=== PATIENT | male | born 1990 | race African-American/Black ===

== ENCOUNTER 2022-02-03 06:06 | Emergency (ER) | payer OTHER, SELFPAY ==
[2022-02-03] VITALS (27 sets, daily range): BP systolic 114–144; BP diastolic 62–85; PULSE 65–104; RESP 14–31; TEMP 36.8; O2SAT 99–100
--- NOTE | 2022-02-03 06:12 | ECG_ITS ---
Measurements Intervals [place] Rate: 77 P: 64 AR: 196 QRS: 55 QRSD: 86 T: 42 QT: 343 QTc: 388 Interpretive Statements SINUS RHYTHM ST ELEVATION IN DIFFUSE LEADS- CONSIDER PERICARDITIS OR EARLY REPOLARIZATION ABNORMAL ECG NO PREVIOUS ECG AVAILABLE FOR COMPARISON Electronically Signed On 02-03-2022 7:03:48 MAINFRAME PROGRAMMER ANALYST by Kenny Tatum D.O.
--- NOTE | 2022-02-03 06:19 | ED.GENADULT ---
HPI - General Adult General Chief complaint: Seizure Stated complaint: possible seizure Time Seen by Provider: 02/03/22 06:22 History of Present Illness HPI narrative: Patient is a 31-year-old gentleman who presents to Emergency Department with a chief complaint of seizure. Patient reports that he has prior history of a seizure disorder and takes Keppra 1000 mg twice daily. Patient reports that he is currently treated travel back to [place] and reports that he forgot his Keppra. Patient was on a bus became unresponsive and they called EMS. The patient initially could not provide much history but upon arrival to the emergency department says that he is able to provide history at this point. Related Data Home Medications Medication Instructions Recorded Confirmed levetiracetam 1,000 mg tablet 1,000 mg PO 2XD 02/03/22 02/03/22 (Keppra) Allergies Allergy/AdvReac Type Severity Reaction Status Date / Time No Known Allergies Allergy Verified 02/03/22 06:19 Review of Systems Review of Systems: A 10 system review of systems was completed on the patient and is negative except for what is stated in the HPI. Nursing and ancillary documentation was reviewed. PMFSH Comments Prior history of seizures Exam Narrative: GENERAL: Well-appearing, well-nourished, and in no acute distress. HEAD: Normocephalic, atraumatic. EYES: PERRLA and EOMI. ENT: Nares clear, no rhinorrhea or epistaxis. Mucous membranes moist. NECK: Supple. CHEST: Clear to auscultation. No respiratory distress. HEART: Regular rate and rhythm. No murmur heard. Normal peripheral pulses. ABDOMEN: Soft, nontender, nondistended, normal active bowel sounds. EXTREMITIES: Normal range of motion. No edema. SKIN: Warm, dry, no rash. NEURO: No focal deficits. Alert and oriented x3. PSYCH: Normal mood and affect. Course Course Emergency Course: EKG is sinus rhythm rate of [address] elevation or ST depression Vital Signs Vital signs: Vital Signs Temperature 36.8 C 02/03/22 06:06 Pulse Rate 101 H 02/03/22 06:06 Respiratory Rate 16 02/03/22 06:06 Blood Pressure 132/81 02/03/22 06:06 Pulse Oximetry 99 02/03/22 06:06 Oxygen Delivery Room Air 02/03/22 06:06 Temperature 36.8 C 02/03/22 06:06 Pulse Rate 101 H 02/03/22 06:06 Respiratory Rate 16 02/03/22 06:06 Blood Pressure 132/81 02/03/22 06:06 Pulse Oximetry 99 02/03/22 06:06 Oxygen Delivery Room Air 02/03/22 06:36 Medical Decision Making Vital Signs Vital Signs: Vital Signs Temperature 36.8 C 02/03/22 06:06 Pulse Rate 101 H 02/03/22 06:06 Respiratory Rate 16 02/03/22 06:06 Blood Pressure 132/81 02/03/22 06:06 Pulse Oximetry 99 02/03/22 06:06 Oxygen Delivery Room Air 02/03/22 06:06 Temperature 36.8 C 02/03/22 06:06 Pulse Rate 101 H 02/03/22 06:06 Respiratory Rate 16 02/03/22 06:06 Blood Pressure 132/81 02/03/22 06:06 Pulse Oximetry 99 02/03/22 06:06 Oxygen Delivery Room Air 02/03/22 06:36 Lab Data Result diagrams: 02/03/22 06:28 02/03/22 06:28 Labs: Lab Results 02/03/22 02/03/22 02/03/22 Range/Units 06:25 06:28 06:28 WBC 9.5 (4.5-10.0) K/mm3 RBC 4.37 L (4.6-6.20) M/mm3 Hgb 13.1 L (14.0-18.0) g/dL Hct 39.0 L (42.0-52.0) % MCV 89.2 (80-100) fl MCH 30.0 (26-34) pg MCHC 33.6 (32-36) g/dl RDW 13.4 (11.5-14.5) % Plt Count 227 (150-375) k/mm3 MPV 10.1 (7.4-10.4) fl Immature Gran % (Auto) 0.2 (0-0.5) % Neut % (Auto) 64.2 (45.5-73.1) % Lymph % (Auto) 22.2 (18.3-44.2) % [place] % (Auto) 9.1 H (2.6-8.5) % Eos % (Auto) 4.1 (0-4.4) % Baso % (Auto) 0.2 (0.2-1.2) % Lymph # (Auto) 2.10 (0.9-3.2) K/mm3 [place] # (Auto) 0.9 H (0.1-0.6) K/mm3 Eos # (Auto) 0.4 H (0-0.3) K/mm3 Baso # (Auto) 0.0 (0.0-0.1) K/mm3 Abs Immat Gran (auto) 0.02 (0.00-0.031) K/mm3 Absolute Neuts (auto) 6.1 (1.
[2022-02-03] MEDS: levETIRAcetam 1000MG/NACL100ML 1,000 MG/100 ML BAG 400 MG IVPB (06:31)
[2022-02-03 06:34] LABS: Basophils Percent Auto 0.2 % (0.2-1.2); Eosinophils Absolute Auto 0.4 K/mm3 (0-0.3); Eosinophils Percent Auto 4.1 % (0-4.4); Hemoglobin 13.1 g/dL (14.0-18.0); Immature Granulocyte Absolute 0.02 K/mm3 (0.00-0.031); Immature Granulocyte Percent A 0.2 % (0-0.5); Lymphocytes Percent Auto 22.2 % (18.3-44.2); Mean Corpuscular HGB Conc 33.6 g/dl (32-36); Mean Corpuscular Volume 89.2 fl (80-100); Mean Platelet Volume 10.1 fl (7.4-10.4); Monocytes Absolute Auto 0.9 K/mm3 (0.1-0.6); Monocytes Percent Auto 9.1 % (2.6-8.5); Neutrophils Absolute Auto 6.1 K/mm3 (1.3-6.7); Neutrophils Percent Auto 64.2 % (45.5-73.1); Platelet Count Result 227 k/mm3 (150-375); Red Blood Count 4.37 M/mm3 (4.6-6.20); Red Cell Distribution Width 13.4 % (11.5-14.5); White Blood Count 9.5 K/mm3 (4.5-10.0)
[2022-02-03 06:35] LABS: Appearance Urine Clear (Clear); Bilirubin Urine 1+ (Negative); Blood Urine Negative (Negative); Glucose Urine UA Negative (Negative); Ketones Urine 1+ mg/dL (Negative); Leukocyte Esterase Ur Negative LEU/UL (Negative); Nitrate Urine Negative (Negative); Protein Urine 2+ mg/dL (Negative); Specific Grav Ur >= 1.030 (1.001-1.035)
[2022-02-03 06:39] LABS: Bacteria Urine Trace /hpf; Mucus Urine Heavy /lpf
[2022-02-03 06:41] LABS: Add Urine Microscopic? YES; Color Urine Dark Yellow (Yellow)
[2022-02-03 06:44] LABS: INR 1.1; Prothrombin Time 14.2 Seconds (11.1-14.7)
[2022-02-03 06:45] LABS: Partial Thromboplastin Time 30.5 SECONDS (22.3-36.8)
[2022-02-03 06:46] LABS: Alanine Aminotransferase 17 U/L (6-50); Albumin Level 4.5 g/dL (3.5-5.1); Alkaline Phosphatase 83 U/L (38-126); Anion Gap 7 mmol/L (8-16); Aspartate Amino Transferase 24 U/L (17-59); Bilirubin,Total 0.7 mg/dL (0.2-1.3); Blood Urea Nitrogen 7 mg/dL (9-20); Calcium 9.2 mg/dL (8.4-10.2); Carbon Dioxide 26 mmol/L (22-30); Chloride 103 mmol/L (98-107); Estimated CRCL calculation 208 ml/min; Estimated Glomerular Filt Rate > 60; Glucose 109 mg/dL (65-110); Sodium 136 mmol/L (137-145)
--- NOTE | 2022-02-03 07:10 | PC.NURSE ---
report from tamir harman. pt sleeping in darkened room. no distress noted.
--- NOTE | 2022-02-03 07:45 | PC.NURSE ---
pt arouses easily with verbal stimuli. aware of place but confused to day or month. appears confused. edp aware.
--- NOTE | 2022-02-03 10:00 | PC.NURSE ---
pt ambulatory to bathroom without difficulty. informed of todays events. pt attempted to contact family via phone.
--- NOTE | 2022-02-03 13:11 | PCCCNOTE ---
Late entry: Phone call received from bedside LESA Lehman, requesting transportation assistance for patient. Met with patient in ER room 14, patient states that he was en route from [facility] [facility] to [place] via bus when he had a seizure and was transported to ER. Patient states that he is trying to get to his Aunt's. Patient states that his Aunt was expecting him yesterday. Patient uses care coordination phone to call but no answer. Patient uses cc's phone again and calls his Aunt this time leaving a vm message of his whereabouts and provided the ER phone number. Patient does not have any options for transportation. Asked about calling [employer] and he does no think that it is an option. Bus routes looked up online to [place] from [facility], printed and provided to patient. Patient does not want any resources for homeless shelters in this area. Address and phone # of [facility] [place] [facility] [place] with phone written on bus schedules along with [employer] phone #. Explained all papers and phone numbers to patient and that a cab voucher would be provided to get him to the bus station in [facility]. Requested a meal for patient before discharge. Cab voucher provided to LESA Lehman.
== END 2022-02-03 12:35 | disposition home or self-care (01) ==
PROVIDERS: Emergency Medicine; Emergency Provider Emergency Medicine
DX: G40.909 Epilepsy, unspecified, not intractable, without status epilepticus (principal); T42.6X6A Underdosing of other antiepileptic and sedative-hypnotic drugs, initial encounter; Z91.138 Patient's unintentional underdosing of medication regimen for other reason; R94.31 Abnormal electrocardiogram [ECG] [EKG]
CPT/HCPCS: 36415; 80053; 81001; 85025; 85610; 85730; 93005; 96365; 99284; J1953